=== PATIENT | female | born 1930 | race Caucasian/White ===

== ENCOUNTER 2017-11-15 15:29 | Inpatient (IN) ==
[2017-11-15] MEDS ORDERED: SODIUM CHLORIDE 0.9% 1,000 ML IV STA (16:11)
[2017-11-15 16:54] LABS: Basophils # 0.1 10*3/uL (0.0-0.2); Basophils % 1.2 % (0.0-0.8); Eosinophils # 0.6 10*3/uL (0.0-0.87); Eosinophils % 11.9 % (0.00-10.9); Hematocrit 34.3 VOL% (35.7-47.0); Hemoglobin 11.3 GM/DL (12.0-16.0); Immature Granulocytes % 0.2 %; Immature Granulocytes Absolute 0.01 #; Lymphocytes # 1.4 10*3/uL (1.4-4.0); Lymphocytes % 27.6 % (21.3-54.2); Mean Corpuscular HGB Conc 32.9 GM/DL (32-36); Mean Corpuscular Hemoglobin 29 PG (27-34); Mean Corpuscular Volume 87.9 FL (87-102); Mean Platelet Volume 9.6 FL (9.6-12.0); Monocytes # 0.4 10*3/uL (0.11-0.8); Monocytes % 7.6 % (1.7-12.7); Neutrophils # 2.6 10*3/uL (1.4-7.4); Neutrophils % 51.5 % (38.7-73.9); Platelet Count 236 T/CUMM (130-400); Red Cell Distribution Width 13.2 % (9.3-17.3)
[2017-11-15 17:02] LABS: Calcium 8.9 MG/DL (8.5-10.1); Osmolality,Calculated 287.1 MOS/KG (273-304); Potassium 3.8 MMOL/L (3.5-5.1)
[2017-11-15 17:23] LABS: Apearance,Urine Slightly Hazy (Clear); Bilirubin,Urine Negative (Negative); Blood, Urine Negative (Negative); Glucose,Urine (UA) Negative (Negative); Ketones,Urine Negative (Negative); Mucus,Urine Occasional /LPF (Occasional); Nitrite,Urine Negative (Negative); Protein,Urine Negative; RBC,Urine 1 /HPF (0-4); Urine Color Yellow (Yellow); Urine Specific Gravity 1.019 (1.001-1.035); WBC,Urine 27 /HPF (0-6)
[2017-11-15] MEDS ORDERED: cefTRIAXone 1,000 MG in SODIUM CHLORIDE 0.9% 100 ML IV STA (17:42)
[2017-11-15] MEDS ORDERED: ACETAMINOPHEN 325 MG TABLET PO PRN (18:15)
[2017-11-15] MEDS ORDERED: ONDANSETRON 4 MG/2 ML VIAL IV PRN (18:15)
[2017-11-15] MEDS ORDERED: cefTRIAXone 1,000 MG VIAL ONE (18:54)
[2017-11-15] MEDS ORDERED: SODIUM CHLORIDE 0.9% 100 ML IV ONE (18:54)
[2017-11-15 19:32] LABS: Band Neutrophils 2 % (0-10); Eosinophils 11 % (0-10); Lymphocytes 27 % (20-55); Platelet Estimate Normal; Segmented Neutrophils 56 % (50-85); Total Cells Counted 100
[2017-11-15] MEDS: ENOXAPARIN 40 MG/0.4 ML SYRINGE SUBCUT SCH (20:41)
[2017-11-15] MEDS ORDERED: PERMETHRIN 5% CREAM 60 GM TUBE TOP ONE (21:47)
[2017-11-15] MEDS: SODIUM CHLORIDE 0.45% 1,000 ML IV SCH (22:40)
[2017-11-16 05:03] LABS: Basophils # 0.1 10*3/uL (0.0-0.2); Basophils % 1.5 % (0.0-0.8); Eosinophils # 0.7 10*3/uL (0.0-0.87); Eosinophils % 12.7 % (0.00-10.9); Hematocrit 31.6 VOL% (35.7-47.0); Hemoglobin 10.4 GM/DL (12.0-16.0); Immature Granulocytes % 0.2 %; Immature Granulocytes Absolute 0.01 #; Lymphocytes # 1.2 10*3/uL (1.4-4.0); Lymphocytes % 22.6 % (21.3-54.2); Mean Corpuscular HGB Conc 32.9 GM/DL (32-36); Mean Corpuscular Hemoglobin 29 PG (27-34); Mean Corpuscular Volume 87.1 FL (87-102); Mean Platelet Volume 9.9 FL (9.6-12.0); Monocytes # 0.4 10*3/uL (0.11-0.8); Monocytes % 6.7 % (1.7-12.7); Neutrophils % 56.3 % (38.7-73.9); Platelet Count 224 T/CUMM (130-400); Red Blood Count 3.63 MC/CUMM (3.8-5.5); Red Cell Distribution Width 13.1 % (9.3-17.3); White Blood Count 5.3 T/CUMM (4-12)
[2017-11-16 05:31] LABS: Band Neutrophils 3 % (0-10); Eosinophils 7 % (0-10); Hypochromasia 1+; Lymphocytes 19 % (20-55); Segmented Neutrophils 69 % (50-85); Total Cells Counted 100
[2017-11-16 05:32] LABS: Microcytosis Slight; Ovalocytes Slight; Platelet Estimate Normal
[2017-11-16 05:39] LABS: Calcium 8.4 MG/DL (8.5-10.1); Osmolality,Calculated 284.1 MOS/KG (273-304); Potassium 3.9 MMOL/L (3.5-5.1)
[2017-11-16] MEDS ORDERED: LEVOTHYROXINE 25 MCG TABLET PO SCH (07:00)
[2017-11-16] MEDS: PANTOPRAZOLE 40 MG TABLET PO SCH (11:52)
[2017-11-16] MEDS: SODIUM CHLORIDE 0.45% 1,000 ML IV SCH ×2 (11:53→21:13)
[2017-11-16] MEDS: LORazepam 2 MG/1 ML VIAL IV PRN ×2 (13:52→21:13)
[2017-11-16] MEDS ORDERED: HALOPERIDOL 5 MG/ML AMP IV PRN (14:18)
[2017-11-16] MEDS ORDERED: NON-FORMULARY MEDICATION (Esomeprazole Magnesium [Nexium] 40 MG) PO SCH (14:45)
[2017-11-16] MEDS ORDERED: VANCOMYCIN INJ 1,000 MG in SODIUM CHLORIDE 0.9% 250 ML IV ONE (15:00)
[2017-11-16 15:54] LABS: % Iron Saturation 28.8 % (18-50); Ferritin 19.6 ng/ml (8-252)
[2017-11-16] MEDS: hydroCHLOROthiazide 12.5 MG CAPSULE PO SCH (15:58)
[2017-11-16] MEDS: amLODIPine 5 MG TABLET PO SCH ×2 (15:59→21:12)
[2017-11-16 16:02] LABS: Folate 17.8 NG/ML (5.4-24.0)
[2017-11-16] MEDS ORDERED: cefTRIAXone 1,000 MG in SODIUM CHLORIDE 0.9% 100 ML IV SCH (18:00)
[2017-11-16] MEDS: ENOXAPARIN 40 MG/0.4 ML SYRINGE SUBCUT SCH (21:12)
[2017-11-17] MEDS: LORazepam 2 MG/1 ML VIAL IV PRN (03:19)
[2017-11-17] MEDS: LEVOTHYROXINE 75 MCG TABLET PO SCH (09:30)
[2017-11-17] MEDS: amLODIPine 5 MG TABLET PO SCH ×2 (09:30→20:50)
[2017-11-17] MEDS: PANTOPRAZOLE 40 MG TABLET PO SCH (09:31)
[2017-11-17] MEDS: hydroCHLOROthiazide 12.5 MG CAPSULE PO SCH (09:32)
[2017-11-17] MEDS ORDERED: TUBERCULIN SKIN TEST 0.1 ML SYRINGE INTRADERM ONE (12:32)
[2017-11-17] MEDS: CYANOCOBALAMIN 500 MCG TABLET PO SCH ×2 (16:04→20:50)
[2017-11-17] MEDS: SULFAMETHOX/TRIMETHOPRIM 400-80 MG TABLET PO SCH ×2 (16:05→20:50)
[2017-11-17] MEDS: SODIUM CHLORIDE 0.45% 1,000 ML IV SCH (18:33)
[2017-11-17] MEDS: ENOXAPARIN 40 MG/0.4 ML SYRINGE SUBCUT SCH (20:50)
[2017-11-18 05:22] LABS: Basophils # 0.1 10*3/uL (0.0-0.2); Basophils % 0.7 % (0.0-0.8); Eosinophils # 0.3 10*3/uL (0.0-0.87); Hematocrit 32.1 VOL% (35.7-47.0); Hemoglobin 11.3 GM/DL (12.0-16.0); Immature Granulocytes % 0.7 %; Immature Granulocytes Absolute 0.05 #; Mean Corpuscular HGB Conc 35.2 GM/DL (32-36); Mean Corpuscular Hemoglobin 29 PG (27-34); Mean Corpuscular Volume 82.3 FL (87-102); Mean Platelet Volume 10.3 FL (9.6-12.0); Monocytes # 0.5 10*3/uL (0.11-0.8); Monocytes % 6.4 % (1.7-12.7); NRBC # 0.04 10*3/uL; Neutrophils # 5.4 10*3/uL (1.4-7.4); Neutrophils % 74.2 % (38.7-73.9); Platelet Count 225 T/CUMM (130-400); Red Cell Distribution Width 12.8 % (9.3-17.3); White Blood Count 7.2 T/CUMM (4-12)
[2017-11-18 05:51] LABS: Calcium 8.5 MG/DL (8.5-10.1); Osmolality,Calculated 260.7 MOS/KG (273-304); Potassium 3.4 MMOL/L (3.5-5.1)
[2017-11-18] MEDS: LEVOTHYROXINE 75 MCG TABLET PO SCH (06:30)
[2017-11-18] MEDS: SODIUM CHLORIDE 0.45% 1,000 ML IV SCH (07:35)
[2017-11-18] MEDS: SULFAMETHOX/TRIMETHOPRIM 400-80 MG TABLET PO SCH (11:31)
[2017-11-18] MEDS: amLODIPine 5 MG TABLET PO SCH (11:32)
[2017-11-18] MEDS: CYANOCOBALAMIN 500 MCG TABLET PO SCH (11:32)
[2017-11-18] MEDS: PANTOPRAZOLE 40 MG TABLET PO SCH (11:32)
[2017-11-18] MEDS: hydroCHLOROthiazide 12.5 MG CAPSULE PO SCH (11:32)
[2017-11-18 12:01] VITALS: BP 138/83
== END 2017-11-18 12:00 | DRG 690 ==
LOC: EDUNIT# → EDSEX → N.ED 15:29 → N.EDINP 18:04 → N.4E 19:01
PROVIDERS: ADMIT Internal Medicine; ATTEND Internal Medicine

== ENCOUNTER 2018-01-18 09:52 | Observation (INO) ==
[2018-01-18] MEDS ORDERED: ASPIRIN 325 MG TABLET PO STA (10:27)
[2018-01-18 10:57] LABS: Basophils % 0.6 % (0.0-0.8); Eosinophils # 0.1 10*3/uL (0.0-0.87); Eosinophils % 1.1 % (0.00-10.9); Hemoglobin 11.2 GM/DL (12.0-16.0); Immature Granulocytes % 0.6 %; Immature Granulocytes Absolute 0.04 #; Lymphocytes # 1.7 10*3/uL (1.4-4.0); Lymphocytes % 26.6 % (21.3-54.2); Mean Corpuscular HGB Conc 32.9 GM/DL (32-36); Mean Corpuscular Hemoglobin 29 PG (27-34); Mean Corpuscular Volume 86.5 FL (87-102); Mean Platelet Volume 9.3 FL (9.6-12.0); Monocytes # 0.4 10*3/uL (0.11-0.8); Monocytes % 5.9 % (1.7-12.7); Neutrophils # 4.1 10*3/uL (1.4-7.4); Neutrophils % 65.2 % (38.7-73.9); Platelet Count 290 T/CUMM (130-400); Red Blood Count 3.93 MC/CUMM (3.8-5.5); Red Cell Distribution Width 14.4 % (9.3-17.3); White Blood Count 6.3 T/CUMM (4-12)
[2018-01-18 11:20] LABS: Albumin 2.8 G/DL (3.4-5.0); Bilirubin,Total 0.5 MG/DL (0.2-1.0); Calcium 8.6 MG/DL (8.5-10.1); Osmolality,Calculated 278.4 MOS/KG (273-304); Potassium 2.9 MMOL/L (3.5-5.1); Total Protein 6.7 G/DL (6.4-8.3)
[2018-01-18] MEDS ORDERED: POTASSIUM CHLORIDE 20 MEQ TABLET PO STA (11:24)
[2018-01-18] MEDS ORDERED: ENOXAPARIN 30 MG/0.3 ML SYRINGE SUBCUT STA (11:34)
[2018-01-18] MEDS ORDERED: ENOXAPARIN 60 MG/0.6 ML SYRINGE ONE (12:15)
[2018-01-18] MEDS ORDERED: ACETAMINOPHEN 325 MG TABLET PO PRN ×2 (12:59→13:00)
[2018-01-18] MEDS ORDERED: diphenhydrAMINE CAP 25 MG CAPSULE PO PRN (13:00)
[2018-01-18] MEDS ORDERED: hydroCHLOROthiazide 12.5 MG CAPSULE PO SCH (13:00)
[2018-01-18] MEDS ORDERED: guaiFENesin/CODEINE 5 ML LIQUID PO PRN ×2 (13:00→13:42)
[2018-01-18] MEDS ORDERED: DOCUSATE SODIUM 100 MG CAPSULE PO PRN (13:00)
[2018-01-18] MEDS ORDERED: ONDANSETRON 4 MG/2 ML VIAL IV PRN (13:00)
[2018-01-18] MEDS ORDERED: MORPHINE 4 MG/1 ML VIAL IV PRN (13:00)
[2018-01-18] MEDS ORDERED: POTASSIUM CHLORIDE 20 MEQ TABLET PO PRN (13:15)
[2018-01-18] MEDS: ALBUTEROL/IPRATROPIUM 3 ML NEB RESP TX SCH ×2 (15:00→19:44)
[2018-01-18] MEDS ORDERED: LORATADINE 10 MG TABLET ONE (15:49)
[2018-01-18] MEDS ORDERED: AZITHROMYCIN 250 MG TABLET ONE (15:49)
[2018-01-18] MEDS ORDERED: amLODIPine 5 MG TABLET ONE (15:50)
[2018-01-18] MEDS ORDERED: PANTOPRAZOLE 40 MG TABLET PO ONE (15:50)
[2018-01-18] MEDS: LORATADINE 10 MG TABLET PO SCH (15:55)
[2018-01-18] MEDS: PANTOPRAZOLE 40 MG TABLET PO SCH (15:56)
[2018-01-18] MEDS: AZITHROMYCIN 250 MG TABLET PO SCH (15:56)
[2018-01-18] MEDS: amLODIPine 5 MG TABLET PO SCH ×2 (15:56→20:40)
[2018-01-18] MEDS: methylPREDNISolone SOD SUC 40 MG/1 ML VIAL IV SCH (15:57)
[2018-01-18] MEDS: SODIUM CHLORIDE 0.9% 1,000 ML IV SCH (15:57)
[2018-01-18] MEDS: MEMANTINE 10 MG TABLET PO SCH ×2 (16:30→20:40)
[2018-01-18] MEDS: CYANOCOBALAMIN 500 MCG TABLET PO SCH ×2 (16:30→20:40)
[2018-01-18] MEDS: FERROUS SULFATE 325 MG TABLET PO SCH (16:31)
[2018-01-18] MEDS: HYDROCORTISONE 1% CREAM 28 GM TUBE TOP SCH (17:11)
[2018-01-18] MEDS ORDERED: DONEPEZIL 5 MG TABLET PO SCH (21:00)
[2018-01-19] MEDS: ALBUTEROL/IPRATROPIUM 3 ML NEB RESP TX SCH ×3 (00:49→12:15)
[2018-01-19] MEDS: SODIUM CHLORIDE 0.9% 1,000 ML IV SCH (04:15)
[2018-01-19] MEDS: methylPREDNISolone SOD SUC 40 MG/1 ML VIAL IV SCH (04:26)
[2018-01-19 05:30] LABS: Basophils % 0.2 % (0.0-0.8); Hematocrit 29.5 VOL% (35.7-47.0); Hemoglobin 9.4 GM/DL (12.0-16.0); Immature Granulocytes % 0.7 %; Immature Granulocytes Absolute 0.03 #; Lymphocytes # 0.5 10*3/uL (1.4-4.0); Lymphocytes % 11.5 % (21.3-54.2); Mean Corpuscular HGB Conc 31.9 GM/DL (32-36); Mean Corpuscular Hemoglobin 28 PG (27-34); Mean Corpuscular Volume 87.5 FL (87-102); Mean Platelet Volume 9.6 FL (9.6-12.0); Monocytes # 0.1 10*3/uL (0.11-0.8); Monocytes % 1.6 % (1.7-12.7); Neutrophils # 3.8 10*3/uL (1.4-7.4); Platelet Count 270 T/CUMM (130-400); Red Blood Count 3.37 MC/CUMM (3.8-5.5); Red Cell Distribution Width 14.3 % (9.3-17.3); White Blood Count 4.5 T/CUMM (4-12)
[2018-01-19 06:09] LABS: Calcium 7.5 MG/DL (8.5-10.1); Osmolality,Calculated 285.1 MOS/KG (273-304); Potassium 3.2 MMOL/L (3.5-5.1); Risk Ratio 2.53; Thyroid Stimulating Hormone 0.92 uIU/ml (0.358-3.74); VLDL CHOLESTEROL 15.2 MG/DL
[2018-01-19] MEDS: LEVOTHYROXINE 75 MCG TABLET PO SCH ×2 (07:18→09:00)
[2018-01-19 08:21] VITALS: BP 123/73
[2018-01-19] MEDS: MEMANTINE 10 MG TABLET PO SCH (09:00)
[2018-01-19] MEDS: LORATADINE 10 MG TABLET PO SCH (09:00)
[2018-01-19] MEDS: AZITHROMYCIN 250 MG TABLET PO SCH (09:00)
[2018-01-19] MEDS: PANTOPRAZOLE 40 MG TABLET PO SCH (09:00)
[2018-01-19] MEDS: CYANOCOBALAMIN 500 MCG TABLET PO SCH (09:00)
[2018-01-19] MEDS: FERROUS SULFATE 325 MG TABLET PO SCH (09:00)
[2018-01-19] MEDS: amLODIPine 5 MG TABLET PO SCH (09:00)
[2018-01-19] MEDS ORDERED: ENOXAPARIN 40 MG/0.4 ML SYRINGE SUBCUT SCH (09:00)
[2018-01-19] MEDS: HYDROCORTISONE 1% CREAM 28 GM TUBE TOP SCH (09:00)
[2018-01-19 11:04] LABS: Hematocrit 29.4 VOL% (35.7-47.0); Hemoglobin 9.9 GM/DL (12.0-16.0)
[2018-01-19] MEDS ORDERED: POTASSIUM CHLORIDE 20 MEQ TABLET PO ONE (11:30)
== END 2018-01-19 13:58 ==
LOC: EDUNIT# → EDBD → N.ED 09:52 → N.EDINP 09:52 → N.2E 16:55
PROVIDERS: ADMIT Internal Medicine; ATTEND Internal Medicine